=== PATIENT | female | born 1960 | race Caucasian/White ===

== ENCOUNTER 2023-05-11 22:04 | Emergency (ER) | payer OTHER, SELFPAY ==
[2023-05-11 22:31] LABS: Appearance Urine Cloudy (Clear); Bilirubin Urine Negative (Negative); Blood Urine 2+ (Negative); Color Urine Yellow (Yellow); Glucose Urine Negative (Negative); Ketones Urine Negative (Negative); Leukocyte Esterase Urine 1+ (Negative); Nitrite Urine Negative (Negative); Protein Urine 3+ (Negative); Specific Gravity Urine >= 1.030 (1.000-1.030); Urobilinogen Urine 0.2 (0.2-1.0); pH Urine 5.5 (5.0-8.5)
[2023-05-11 22:41] LABS: Bacteria Urine Few; Squamous Epithelial Cell Urine Few (None-Few); WBC Urine >100 (0-5)
[2023-05-11 22:44] VITALS: BP 159/76; PULSE 99; RESP 18; TEMP 36.7; O2SAT 94; BMI 26.6
--- NOTE | 2023-05-11 22:48 | ED_ITS ---
HPI - General Adult General Time Seen by Provider: 22:48 Date Seen: 05/11/23 Chief complaint: Urogenital Problems, Female Stated complaint: possible bladder infection Time Seen by Provider: 05/11/23 22:47 Source: patient Mode of arrival: ambulatory Limitations: no limitations History of Present Illness HPI narrative: Patient is a 62-year-old female presenting emergency department for difficulty urinating pain with urination. She states started today when if she goes to the bathroom she only goes a small amount and has a small amount of burning with urination. She states she has had symptoms like this before and always been a urinary tract infection. She denies fevers, chills, weakness, numbness, abdominal pain, headache, vision changes, lightheadedness, dizziness. She states she is a smoker but has no other medical issues. She states she mostly vapes now. Has not noticed any blood in her urine. Denies any flank pain. Does states she gets intermittent back pain but has not had any back pain over the past few days. No other concerns at this time Related Data Home Medications Medication Instructions Recorded Confirmed gabapentin 300 mg capsule 300 mg PO DAILY 05/11/23 05/11/23 Allergies Allergy/AdvReac Type Severity Reaction Status Date / Time pregabalin [From Lyrica] Allergy Mild Verified 05/11/23 22:53 dissolving stitches Allergy Severe Uncoded 05/11/23 22:53 Review of Systems Status of ROS: Reports: 10 or more systems reviewed and unremarkable except as noted in History and below PFSH PFSH Social History Smoking Status: Unknown if ever smoked Non-prescribed substance use: denies use service: No Exam Narrative: Exam Narrative: Const: Well-nourished, Well-developed, in mild distress Eyes: PERRL, no conjunctival injection, and symmetrical lids ENMT: Atraumatic external nose and ears. Moist mucous membranes. Neck: Symmetric, trachea midline, No thyromegaly. CVS: RRR, No murmurs or gallops. Peripheral pulses 2+ and equal in all extremities RESP: Unlabored respiratory effort. Clear to auscultation bilaterally. GI: Nontender/Nondistended, No rebound or guarding. MSK:Extremities w/o deformity, Normal Active ROM Skin: Warm, Dry. No rashes or lesions. Neuro: Normal Muscle tone, No focal neurological deficits. Psych: Awake, Alert, & Oriented x3. Appropriate mood and affect. Const: Vital Signs, click to edit/add: Vital Signs - 24 hr 05/11/23 22:44 Temperature 98.0 F Pulse Rate [Pulse Oximeter] 99 Respiratory Rate 18 Blood Pressure [Ri ght Upper Arm] 159/76 H Pulse Oximetry 94 Oxygen Delivery Me thod Room Air Course Vital Signs Vital signs: Initial Vital Signs Temperature 98.0 F 05/11/23 22:44 Temperature Source Oral 05/11/23 22:44 Pulse Rate 99 05/11/23 22:44 Respiratory Rate 18 05/11/23 22:44 Blood Pressure 159/76 H 05/11/23 22:44 Blood Pressure Mean 103 05/11/23 22:44 Blood Pressure Position Sitting 05/11/23 22:44 Pulse Oximetry 94 05/11/23 22:44 Oxygen Delivery Method Room Air 05/11/23 22:44 Vital Signs Temperature 98.0 F 05/11/23 22:44 Pulse Rate 99 05/11/23 22:44 Respiratory Rate 18 05/11/23 22:44 Blood Pressure 159/76 H 05/11/23 22:44 Pulse Oximetry 94 05/11/23 22:44 Oxygen Delivery Method Room Air 05/11/23 22:44 Temperature 98.0 F 05/11/23 22:44 Pulse Rate 99 05/11/23 22:44 Respiratory Rate 18 05/11/23 22:44 Blood Pressure 159/76 H 05/11/23 22:44 Pulse Oximetry 94 05/11/23 22:44 Oxygen Delivery Method Room Air 05/11/23 22:44 Medical Decision Making [facility] Narrative Medical decision making narrative: Patient is a 62-year-old female presenting for concerns fever and has no history of fevers today she states. Her only symptom she states is difficulty urinating and dysuria. She states this feels just like previous UTIs. Symptoms started today. She states she has no other symptoms other than this at this time. Her vital signs otherwise stable. Do urinalysis which does show signs of a UTI. There are 5-10 red blood cells but this could be from the UTI. She is not having any abdominal pain or flank pain in a kidney stone is unlikely at this time. Appears all symptoms can be associated with the UTI. The patient be discharged home on Keflex and she is agreeable to this plan. Lab Data Labs: Lab Results 05/11/23 Range/Units 22:10 Urine Color Yellow (Yellow) Urine Appearance Cloudy A (Clear) Urine pH 5.5 (5.0-8.5) Ur Specific [place] >= 1.030 (1.000-1.030) Urine Protein 3+ A (Negative) Urine Glucose (UA) Negative (Negative) Urine Ketones Negative (Negative) Urine Blood 2+ A (Negative) Urine Nitrite Negative (Negative) Urine Bilirubin Negative (Negative) Urine Urobilinogen 0.2 (0.2-1.0) Ur Leukocyte Esterase 1+ A (Negative) Urine RBC 5-10 A (0-2) Urine WBC >100 A (0-5) Ur Squamous Epith Cells Few (None-Few) Urine Bacteria Few A (None) Discharge Plan Discharge Clinical Impression: Urinary tract infection Qualifiers: Urinary tract infection type: acute cystitis Hematuria presence: with hematuria Qualified Code(s): N30.01 - Acute cystitis with hematuria Patient Disposition: Home, Self-Care Condition: Stable Instructions: Urinary Tract Infection in Women (DC) Additional Instructions: Follow-up with the primary care provider. If you are having issues with urinary retention please return to the emergency department. Take the antibiotics as directed. Prescriptions: No Action gabapentin 300 mg capsule 300 mg PO DAILY Stand Alone Forms: [employer] Info Instructions
== END 2023-05-11 23:05 | disposition home or self-care (01) ==
LOC: ED 23:01
PROVIDERS: Emergency Provider Student in an Organized Health Care Education/Training Program
DX: N39.0 Urinary tract infection, site not specified (principal)
CPT/HCPCS: 81001; 87086; 87186; 99282; 99283

== ENCOUNTER 2025-01-09 15:30 | Outpatient (CLI) | payer OTHER, SELFPAY | END 2025-01-09 15:31 | disposition home or self-care (01) | LOC: AMB 01-11 12:55 | PROVIDERS: Visit Provider Family Medicine | DX: F29 Unspecified psychosis not due to a substance or known physiological condition (principal) | CPT/HCPCS: A0998 ==